=== PATIENT | male | born 1960 | race Caucasian/White ===

== ENCOUNTER 2018-05-23 15:26 | Inpatient (IN) | payer OTHER ==
--- NOTE | 2018-05-23 16:07 | PDOC ---
History of Present Illness - General Chief Complaint: Revisit,Radiology Variance Stated Complaint: CHEST PAIN/ COUGHING BLOOD Time Seen by Provider: 05/23/18 16:07 Past History - Past Medical History Allergies/Adverse Reactions: Allergies Allergy/AdvReac Type Severity Reaction Status Date / Time No Known Allergies Allergy Verified 05/23/18 15:33 Home Medications: Ambulatory Orders Folic Acid - 1 mg PO DAILY 05/23/18 Methotrexate Sodium [Methotrexate] 2.5 mg PO WEEKLY 05/23/18 - Suicide/Smoking/Psychosocial Hx Smoking History: Current every day smoker Information on smoking cessation initiated: No *Physical Exam - Vital Signs Last Vital Signs Temp Pulse Resp BP Pulse Ox 97.7 F 72 16 141/76 98 05/23/18 15:40 05/23/18 15:40 05/23/18 15:40 05/23/18 15:40 05/23/18 15:40 Moderate Sedation - Procedure Monitoring Vital Signs: Procedure Monitoring Vital Signs Temperature 97.7 F 05/23/18 15:40 Pulse Rate 72 05/23/18 15:40 Respiratory Rate 16 05/23/18 15:40 Blood Pressure 141/76 05/23/18 15:40 O2 Sat by Pulse Oximetry (%) 98 05/23/18 15:40 *DC/Admit/Observation/Transfer - Referrals Referrals: Vin Gray MD [Primary Care Provider] - - Patient Instructions - Post Discharge Activity
--- NOTE | 2018-05-23 16:12 | PDOC ---
History of Present Illness - General Chief Complaint: Revisit,Radiology Variance Stated Complaint: CHEST PAIN/ COUGHING BLOOD Time Seen by Provider: 05/23/18 16:07 History Source: Patient, Spouse ( present at bedside), [employer], Primary Care Provider Exam Limitations: Language Barrier - History of Present Illness Initial Comments: HPI: 57 y/o male presenting to [facility] ER from Dr. Vin Gray office with concern for right hilar mass with possible post obstructive right upper lobe pneumonia noted on PET scan performed yesterday. Pt reports right sided pleuritic chest pain and morning hemoptysis for the past two weeks with night sweats, weight loss, facial flushing, and muscle weakness for the past month. Denies diarrhea, vomiting, or syncope. Received 9 days of PO Levaquin 500mg. Outpatient PET scan uploaded into PACS. On outpatient labs dated 17 Apr 2018: ESR 79 CRP 7.7 Pt is Macedonian speaking only. [employer] telephone maker up folding utilized. PCP: Dr. 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 RA factor IgA elevated, normal IgM and IgG Family Hx: - Brother diagnosed with prostate cancer Past History - Past Medical History Allergies/Adverse Reactions: Allergies Allergy/AdvReac Type Severity Reaction Status Date / Time No Known Allergies Allergy Verified 05/23/18 15:33 Home Medications: Ambulatory Orders Folic Acid - 1 mg PO DAILY 05/23/18 Methotrexate Sodium [Methotrexate] 2.5 mg PO WEEKLY 05/23/18 - Suicide/Smoking/Psychosocial Hx Smoking History: Current every day smoker Information on smoking cessation initiated: No Review of Systems - Review of Systems Able to Perform ROS?: Yes Comments:: In addition to that documented in the HPI above, the additional ROS was obtained : Constitutional: Endorses night sweats and fevers ENMT: Denies sore throat or difficulty swallowing CV: Per HPI Resp: Per HPI GI: Denies vomiting, diarrhea, melena, or hematochezia : Denies dysuria, hematuria, or urinary frequency *Physical Exam - Vital Signs Last Vital Signs Temp Pulse Resp BP Pulse Ox 97.7 F 72 16 141/76 98 05/23/18 15:40 05/23/18 15:40 05/23/18 15:40 05/23/18 15:40 05/23/18 15:40 - Physical Exam Comments: Constitutional: Well-developed, well-nourished adult male in no acute distress or obvious discomfort. Found semi-fowlers in hospital bed. Alert and oriented x4. Answered all questions appropriately and completely. Speech was non-labored , non-pressured. Head: Normocephalic. No obvious external signs of trauma. Eyes: Sclerae white. Ears: Hearing grossly intact. Nose: No nasal discharge. Neck: Supple, trachea is midline. Cardiovascular / Chest: Regular rate and regular rhythm. No murmur, rubs, clicks, or gallops. Peripheral pulses: radial pulses full. Respiratory: Breathing unlabored. Equal chest rise and fall. Clear to auscultation bilaterally. No stridor, no wheezing, no rhonchi. Gastrointestinal: abdomen is soft, non-tender, non-distended. Neuro: Alert and oriented. Moving all four extremities spontaneously. Skin: Warm, dry, and intact. Psych: Affect: appropriate. Mood: normal. Moderate Sedation - Procedure Monitoring Vital Signs: Procedure Monitoring Vital Signs Temperature 97.7 F 05/23/18 15:40 Pulse Rate 72 05/23/18 15:40 Respiratory Rate 16 05/23/18 15:40 Blood Pressure 141/76 05/23/18 15:40 O2 Sat by Pulse Oximetry (%) 98 05/23/18 15:40 ED Treatment Course - LABORATORY CBC & Chemistry Diagram: 05/23/18 16:56 05/23/18 16:56 Medical Decision Making - Medical Decision Making *Reviewed vital signs, nursing notes, and prior visit documentation (if available). 57 y/o male presenting at request of PCP for admission and further evaluation of right lung mass with possible postobstructive pneumonia. Afebrile. Vitals unremarkable for hypotension or tachycardia. Will obtain chest CT and basic lab work with ESR and CRP to trend from outpatient labs. ESR and CRP remain elevated at level previous documented. CBC unremarkable for anemia or leukocytosis. CMP unremarkable for significant electrolyte derangement. LFTs not elevated. BUN mildly elevated but Cr at baseline. eGFR >60. In person consultation with Dr. Pickens. Verbally appraised of the pts HPI, ED course, and current plan of management. Requested ceftriaxone for possible pneumonia and non-emergent ID consultation after evaluating the CT scan. Will evaluate the pt. 18:[address] Rg through answering service. Awaiting call back. Telephone consultation for admission with Dr. Rg. Verbally appraised of the pts HPI, ED course, and current plan of management. Requested Dr. Lake ID consult. No further orders requested. Will accept pt to med/surg on inpatient status. Formal CT scan radiology report pending at time of admission. *DC/Admit/Observation/Transfer Diagnosis at time of Disposition: Abnormal radiologic finding of lung field - Discharge Dispostion Condition at time of disposition: Good Decision to Admit order: Yes - Referrals - Patient Instructions - Post Discharge Activity
[2018-05-23 17:15] LABS: BASO % 0.8 % (0-2.0); EOS % 3.9 % (0-4.5); HEMATOCRIT 39.7 % (35.4-49); HEMOGLOBIN 13.7 GM/dL (11.7-16.9); LYMPH % 19.4 % (8-40); MCH 31.5 pg (25.7-33.7); MCHC 34.6 g/dl (32.0-35.9); MEAN CELL VOLUME 90.9 fl (80-96); MEAN PLT VOLUME 8.6 fl (7.5-11.1); MONO % 6.8 % (3.8-10.2); NEUT % 69.1 % (42.8-82.8); PLATELET COUNT 382 K/MM3 (134-434); RBC 4.37 M/mm3 (4.00-5.60); RDW 13.4 % (11.9-15.9)
[2018-05-23 17:40] LABS: INR 1.14 (0.83-1.09); PROTHROMBIN TIME (PATIENT) 13.5 SEC (9.7-13.0)
--- NOTE | 2018-05-23 17:48 | PDOC ---
Attending Attestation - Resident Resident Name: Donte Torres - ED Attending Attestation I have performed the following: I have examined & evaluated the patient, The case was reviewed & discussed with the resident, I agree w/resident's findings & plan, Exceptions are as noted - HPI HPI: 05/23/18 17:46 57 M with no PMH presenting to ED after being found to have new R lung mass. Pt reports having R sided chest pain and hemoptysis x 2 weeks. He endorses pleuritic pain. Also complains of night sweats and weight loss, as well as generalized fatigue. Denies any fevers. Denies recent travel or prior incarceration. Pt was treated with outpt course of levaquin by Dr. Gray. Had outpt PET scan that showed R hilar mass. - Physicial Exam PE: 05/23/18 17:47 "GENERAL: Awake, alert, and fully oriented, in no acute distress. HEAD: No signs of trauma EYES: PERRLA, EOMI, sclera anicteric, conjunctiva clear ENT: Auricles normal inspection, hearing grossly normal, nares patent, oropharynx clear without exudates. Moist mucosa NECK: Nontender, no stepoffs, Normal ROM, supple, no lymphadenopathy, JVD, or masses LUNGS: Breath sounds equal, clear to auscultation bilaterally. No wheezes, and no crackles HEART: Regular rate and rhythm, normal S1 and S2, no murmurs, rubs or gallops ABDOMEN: Soft, nontender, normoactive bowel sounds. No guarding, no rebound. No masses EXTREMITIES: Normal range of motion, no edema. No clubbing or cyanosis. No cords, erythema, or tenderness NEUROLOGICAL: Cranial nerves II through XII intact. 5/5 strength and sensation in all extremities, Normal speech, normal gait, normal cerebellar function SKIN: Warm, Dry, normal turgor, no rashes or lesions noted. - Medical Decision Making 05/23/18 17:47 57 M with R chest pain, hemoptysis, found to have new R hilar lung mass. - Labs - CT chest - Admit
[2018-05-23] MEDS ORDERED: CEFTRIAXONE 1,000 MG in DEXTROSE 5%-WATER - 50 ML IVPB ONE (18:18)
[2018-05-23] MEDS ORDERED: CEFTRIAXONE 1 GM/50 ML BAG ONE (18:33)
[2018-05-23 18:49] LABS: MAGNESIUM 2.2 mg/dL (1.8-2.4); PHOSPHOROUS 3.8 mg/dL (2.5-4.9)
[2018-05-23 19:51] LABS: ALBUMIN 3.5 g/dl (3.4-5.0); ALK PHOS 83 U/L (45-117); ANION GAP 8 MMOL/L (8-16); BILIRUBIN,TOTAL 0.1 mg/dL (0.2-1); BLOOD UREA NITROGEN 22 mg/dL (7-18); CALCIUM 8.8 mg/dL (8.5-10.1); CHLORIDE 106 mmol/L (98-107); CO2 23 mmol/L (21-32); CREATININE 0.8 mg/dL (0.55-1.3); GLUCOSE,RANDOM 94 mg/dL (74-106); POTASSIUM 4.3 mmol/L (3.5-5.1); SGOT/AST 16 U/L (15-37); SGPT/ALT 27 U/L (13-61); SODIUM 137 mmol/L (136-145); TOT PROT 7.3 g/dl (6.4-8.2)
[2018-05-24] MEDS ORDERED: ALBUTEROL SO4 2.5/IPRATROPIUM 0.5 INH SOL 3 ML VIAL.NEB. NEB PRN (02:37)
[2018-05-24 07:26] LABS: EOS % 4.1 % (0-4.5); HEMOGLOBIN 13.8 GM/dL (11.7-16.9); LYMPH % 22.9 % (8-40); MCH 31.1 pg (25.7-33.7); MCHC 34.5 g/dl (32.0-35.9); MEAN CELL VOLUME 90.1 fl (80-96); MEAN PLT VOLUME 8.8 fl (7.5-11.1); PLATELET COUNT 340 K/MM3 (134-434); RBC 4.43 M/mm3 (4.00-5.60); RDW 13.1 % (11.9-15.9)
[2018-05-24 07:56] LABS: ALBUMIN 2.9 g/dl (3.4-5.0); ALK PHOS 73 U/L (45-117); ANION GAP 6 MMOL/L (8-16); BILIRUBIN,TOTAL 0.4 mg/dL (0.2-1); BLOOD UREA NITROGEN 18 mg/dL (7-18); CALCIUM 8.4 mg/dL (8.5-10.1); CHLORIDE 105 mmol/L (98-107); CO2 28 mmol/L (21-32); CREATININE 0.5 mg/dL (0.55-1.3); GLUCOSE,RANDOM 94 mg/dL (74-106); POTASSIUM 4.3 mmol/L (3.5-5.1); SGOT/AST 19 U/L (15-37); SGPT/ALT 30 U/L (13-61); SODIUM 139 mmol/L (136-145); TOT PROT 6.5 g/dl (6.4-8.2)
[2018-05-24] MEDS ORDERED: DEXTROSE 5%-WATER - 50 ML IVPB ONE (09:49)
[2018-05-24] MEDS ORDERED: cefTRIAXone SODIUM 1 GM VIAL ONE (09:49)
[2018-05-24] MEDS: CEFTRIAXONE 1 GM in DEXTROSE 5%-WATER - 50 ML IVPB SCH (10:36)
[2018-05-24] MEDS: FOLIC ACID 1 MG TABLET (FP) PO SCH (10:36)
[2018-05-24] MEDS: HEPARIN NA (PORCINE) 5,000 UNITS/ML 1ML VIAL SQ SCH ×2 (10:36→21:31)
--- NOTE | 2018-05-24 11:40 | CON.ID ---
Consult Consult Specialty:: infectious diseases Referred by:: Reason for Consultation:: pna/hemoptysis - History of Present Illness Chief Complaint: sob History of Present Illness: 57 y/o male admitted because of sob and was worked up outside and found to have concern for right hilar mass with possible post obstructive right upper lobe pneumonia noted on PET scan performed yesterday. Pt reports right sided pleuritic chest pain and morning hemoptysis for the past two weeks with night sweats, weight loss, facial flushing, and muscle weakness for the past month. Denies diarrhea, vomiting, or syncope. Received 9 days of PO Levaquin 500mg. patients in the room who has given the history patient was a heavy smoker at one time - History Source History Provided By: Family Member Limitations to Obtaining History: Language Barrier - Alcohol/Substance Use Hx Alcohol Use: No - Smoking History Smoking history: Current every day smoker Have you smoked in the past 12 months: Yes Aproximately how many cigarettes per day: 20 Home Medications - Allergies Allergies/Adverse Reactions: Allergies Allergy/AdvReac Type Severity Reaction Status Date / Time No Known Allergies Allergy Verified 05/23/18 15:33 - Home Medications Home Medications: Ambulatory Orders Methotrexate Sodium [Methotrexate] 12.5 mg PO WEEKLY 05/23/18 Naproxen [Naprosyn -] 500 mg PO PRN 05/23/18 RX: Folic Acid - 1 mg PO DAILY 05/23/18 levoFLOXacin [Levaquin -] 500 mg PO DAILY MDD 2 more doses 05/23/18 Review of Systems - Review of Systems Constitutional: reports: Weakness Eyes: reports: No Symptoms HENT: reports: No Symptoms Neck: reports: No Symptoms Cardiovascular: reports: No Symptoms Respiratory: reports: Cough, SOB, SOB on Exertion Gastrointestinal: reports: No Symptoms Genitourinary: reports: No Symptoms Musculoskeletal: reports: No Symptoms Integumentary: reports: No Symptoms Neurological: reports: No Symptoms Endocrine: reports: No Symptoms Hematology/Lymphatic: reports: No Symptoms Psychiatric: reports: No Symptoms Physical Exam Vital Signs: Vital Signs Temperature 98.6 F 05/24/18 09:00 Pulse Rate 75 05/24/18 09:00 Respiratory Rate 18 05/24/18 09:00 Blood Pressure 134/77 05/24/18 09:00 O2 Sat by Pulse Oximetry (%) 98 05/23/18 22:00 Constitutional: Yes: No Distress, Calm, Thin Eyes: Yes: Conjunctiva Clear HENT: Yes: Atraumatic Neck: Yes: Supple, Trachea Midline Cardiovascular: Yes: Regular Rate and Rhythm Respiratory: Yes: Poor Air Entry (at the bases,poor insp effort) Gastrointestinal: Yes: Normal Bowel Sounds, Soft Extremities: Yes: WNL Integumentary: Yes: WNL Neurological: Yes: Alert, Oriented Psychiatric: Yes: Alert, Oriented Labs: CBC, BMP 05/24/18 06:00 05/24/18 06:00 Imaging - Results Cat Scan: Report Reviewed, Image Reviewed Assessment/Plan Problem List - Problems (1) Abnormal radiologic finding of lung field Code(s): R91.8 - OTHER NONSPECIFIC ABNORMAL FINDING OF LUNG FIELD (2) Pneumonia Code(s): J18.9 - PNEUMONIA, UNSPECIFIED ORGANISM patient probably with lung ca and also post obst pna continue current mgmt will continue abx for now work up rest as per the team
--- NOTE | 2018-05-24 11:41 | EKG ---
Test Reason : Blood Pressure : / mmHG Vent. Rate : 069 BPM Atrial Rate : 069 BPM P-R Int : 156 ms QRS Dur : 110 ms QT Int : 378 ms P-R-T Axes : 077 028 060 degrees QTc Int : 405 ms NORMAL SINUS RHYTHM POSSIBLE LEFT ATRIAL ENLARGEMENT INCOMPLETE RIGHT BUNDLE BRANCH BLOCK NO PREVIOUS ECGS AVAILABLE Confirmed by BECCA HERNÁNDEZ MD ([id number]) on 05/24/2018 11:41:22 AM Referred By: Confirmed By:BECCA HERNÁNDEZ MD
--- NOTE | 2018-05-24 13:04 | CONSULT ---
Consultation: REQUESTING PROVIDER: Dr. Rg CONSULT REQUEST: We have been asked to medically evaluate this patient for lung mass. HISTORY OF PRESENT ILLNESS: This is a 57 year old Croatian with a history of osteoarthritis (may also have RA? on methotrexate [id number], patients states for arthritis) , with complaints of hemoptysis most often in the morning (x2 weeks), 20lb weight loss in the past year, and a recent found lung mass on outpatient chest CT. He is a 1pp 40 yr smoker, recently quit. In the ER chest CT revealing right hilar mass with partial obstruction of the right bronchus; with enlarged paratracheal mediastinal lymph nodes. PMH: osterarthritis; RA? PSH: had bad accident years ago ; surgery on knees, legs, arms Social REVIEW OF SYSTEMS: CONSTITUTIONAL: Absent: fever, chills, diaphoresis, generalized weakness, malaise, loss of appetite, weight change HEENT: Absent: rhinorrhea, nasal congestion, throat pain, throat swelling, difficulty swallowing, mouth swelling, ear pain, eye pain, visual changes CARDIOVASCULAR: Positive: intermittent chest pain, Absent: syncope, palpitations, irregular heart rate, lightheadedness, peripheral edema RESPIRATORY: Positive: cough, shortness of breath, dyspnea with exertion, hemoptysis Absent: , orthopnea, wheezing, stridor, GASTROINTESTINAL: Absent: abdominal pain, abdominal distension, nausea, vomiting, diarrhea, constipation, melena, hematochezia GENITOURINARY: Absent: dysuria, frequency, urgency, hesitancy, hematuria, flank pain, genital pain MUSCULOSKELETAL: Absent: myalgia, arthralgia, joint swelling, back pain, neck pain SKIN: Absent: rash, itching, pallor HEMATOLOGIC/IMMUNOLOGIC: Absent: easy bleeding, easy bruising, lymphadenopathy, frequent infections ENDOCRINE: Absent: unexplained weight gain, unexplained weight loss, heat intolerance, cold intolerance NEUROLOGIC: Absent: headache, focal weakness or paresthesias, dizziness, unsteady gait, seizure, mental status changes, bladder or bowel incontinence PSYCHIATRIC: Absent: anxiety, depression, suicidal or homicidal ideation, hallucinations. PHYSICAL EXAMINATION Vital Signs - 24 hr 05/23/18 05/23/18 05/23/18 15:40 19:31 21:00 Temperature 97.7 F 98.2 F Pulse Rate 72 Pulse Rate [ 72 Right Radial] Respiratory 16 19 Rate Blood Pressure 141/76 Blood Pressure 143/80 [Left Arm] O2 Sat by Pulse 98 100 98 Oximetry (%) 05/23/18 05/23/18 05/24/18 21:13 22:00 06:46 Temperature 98.1 F 98.1 F 97.9 F Pulse Rate 61 61 61 Pulse Rate [ Right Radial] Respiratory 18 18 18 Rate Blood Pressure 117/66 117/66 119/68 Blood Pressure [Left Arm] O2 Sat by Pulse 98 Oximetry (%) 05/24/18 09:00 Temperature 98.6 F Pulse Rate 75 Pulse Rate [ Right Radial] Respiratory 18 Rate Blood Pressure 134/77 Blood Pressure [Left Arm] O2 Sat by Pulse 96 Oximetry (%) GENERAL: Awake, alert, and fully oriented, in no acute distress. HEAD: Normal with no signs of trauma. EYES: Pupils equal, round and reactive to light, extraocular movements intact, sclera anicteric, conjunctiva clear. No lid lag. EARS, NOSE, THROAT: Ears normal, nares patent, oropharynx clear without exudates. Moist mucous membranes. NECK: Normal range of motion, supple without lymphadenopathy, JVD, or masses. Breast/axilla; no lumps, masses ; nipple discharge LUNGS: decreased breath sounds RUL; scattered wheeze HEART: Regular rate and rhythm, normal S1 and S2 without murmur, rub or gallop. ABDOMEN: Soft, nontender, not distended, normoactive bowel sounds, no guarding, no rebound, no masses. No hepatomegaly or splenomegaly. MUSCULOSKELETAL: Normal range of motion at all joints. No bony deformities or tenderness. No CVA tenderness. UPPER EXTREMITIES: 2+ pulses, warm, well-perfused. No cyanosis. No clubbing. Cap refill <2 seconds. No peripheral edema. LOWER EXTREMITIES: 2+ pulses, warm, well-perfused. No calf tenderness. No peripheral edema. left foot; larger than right; bony prominence; NEUROLOGICAL: Cranial nerves II-XII intact. Normal speech. PSYCHIATRIC: Cooperative. Good eye contact. Appropriate mood and affect. SKIN: Warm, dry, normal turgor, no rashes or lesions noted. Laboratory Results - last 24 hr 05/23/18 05/23/18 05/23/18 16:56 16:56 16:56 WBC 9.0 RBC 4.37 Hgb 13.7 Hct 39.7 MCV 90.9 MCH 31.5 MCHC 34.6 RDW 13.4 Plt Count 382 MPV 8.6 Absolute Neuts (auto) 6.2 Neutrophils % 69.1 Lymphocytes % 19.4 Monocytes % 6.8 Eosinophils % 3.9 Basophils % 0.8 Nucleated RBC % 0 ESR PT with INR INR Sodium 137 Potassium 4.3 Chloride 106 Carbon Dioxide 23 Anion Gap 8 BUN 22 H Creatinine 0.8 Creat Clearance w eGFR > 60 Random Glucose 94 Calcium 8.8 Phosphorus Magnesium Total Bilirubin 0.1 L AST 16 ALT 27 Alkaline Phosphatase 83 C-Reactive Protein 1.5 H Total Protein 7.3 Albumin 3.5 Blood Type O POSITIVE Antibody Screen Negative 05/23/18 05/23/18 05/23/18 16:56 16:56 16:56 WBC RBC Hgb Hct MCV MCH MCHC RDW Plt Count MPV Absolute Neuts (auto) Neutrophils % Lymphocytes % Monocytes % Eosinophils % Basophils % Nucleated RBC % ESR 44 H PT with INR 13.50 H INR 1.14 H Sodium Potassium Chloride Carbon Dioxide Anion Gap BUN Creatinine Creat Clearance w eGFR Random Glucose Calcium Phosphorus 3.8 Magnesium 2.2 Total Bilirubin AST ALT Alkaline Phosphatase C-Reactive Protein Total Protein Albumin Blood Type Antibody Screen 05/23/18 05/24/18 05/24/18 21:20 06:00 06:00 WBC 7.0 RBC 4.43 Hgb 13.8 Hct 40.0 MCV 90.1 MCH 31.1 MCHC 34.5 RDW 13.1 Plt Count 340 MPV 8.8 Absolute Neuts (auto) 4.5 Neutrophils % 64.0 Lymphocytes % 22.9 Monocytes % 8.0 Eosinophils % 4.1 Basophils % 1.0 Nucleated RBC % 0 ESR PT with INR INR Sodium 139 Potassium 4.3 Chloride 105 Carbon Dioxide 28 Anion Gap 6 L BUN 18 Creatinine 0.5 L Creat Clearance w eGFR > 60 Random Glucose 94 Calcium 8.4 L Phosphorus Magnesium Total Bilirubin 0.4 AST 19 ALT 30 Alkaline Phosphatase 73 C-Reactive Protein Total Protein 6.5 Albumin 2.9 L Blood Type O POSITIVE Antibody Screen Active Medications Generic Name Dose Route Start Last Admin Trade Name Freq PRN Reason Stop Dose Admin Albuterol/Ipratropium 1 amp 05/24/18 02:37 Duoneb - NEB Q6H PRN SHORTNESS OF BREATH Folic Acid 1 mg 05/24/18 10:00 05/24/18 10:36 Folic Acid - PO 1 mg DAILY NESHA Administration Heparin Sodium (Porcine) 5,000 unit 05/24/18 10:00 05/24/18 10:36 Heparin - SQ 5,000 unit BID NESHA Administration Ceftriaxone Sodium 1 gm/ 50 mls @ 100 mls/hr 05/24/18 10:00 05/24/18 10:36 Dextrose IVPB 100 mls/hr DAILY NESHA Administration Protocol Methotrexate 2.5 mg 05/24/18 02:15 Mexate - PO We [facility] ASSESSMENT/PLAN: This is a 57 year old male with history tobacco use; recent outpatient CT chest showing lung mass; presenting with hemoptysis x2 weeks, found to have post obstructive pna. Lung mass post obstructive pna -chest ct showing right hilar mass with enlarged pretracheal mediastinal nodes -staging; had PET as outpatient; get results; if <1month will only need brain MRI to complete stating (chest CT here extended to adrenals) -need tissue sampling for diagnosis ; bronchoscopy -PT/PTT -pulm consult appreciated Will follow Dispo: We will continue to follow the patient. Thank you for this consultative opportunity. Visit type - Emergency Visit Emergency Visit: Yes ED Registration Date: 05/23/18 Care time: The patient presented to the Emergency Department on the above date and was hospitalized for further evaluation of their emergent condition. - New Patient This patient is new to me today: Yes Date on this admission: 05/24/18 - Critical Care Critical Care patient: No
[2018-05-24 13:18] VITALS: BMI 25.1
--- NOTE | 2018-05-24 14:41 | CON.PULM ---
Consult Consult Specialty:: PULMONARY Referred by:: REYNALDO Reason for Consultation:: LUNG MASS - History of Present Illness Chief Complaint: HEMOPTYSIS/WEIGHT LOSS/CHEST PAIN History of Present Illness: 57 M with no PMH presenting to ED after being found to have new R lung mass. Pt reports having R sided chest pain and hemoptysis x 2 weeks. He endorses pleuritic pain. Also complains of night sweats and weight loss, as well as generalized fatigue. Denies any fevers. Denies recent travel or prior incarceration. Pt was treated with outpt course of levaquin by Dr. Gray. Had outpt PET scan that showed R hilar mass. 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 Cardio/Vascular: No: AFIB Pulmonary: No: Asthma, COPD Gastrointestinal: No: Ascites Hepatobiliary: No: Cirrhosis Renal/: No: Renal Failure Heme/Onc: No: Anemia - Alcohol/Substance Use Hx Alcohol Use: No - Smoking History Smoking history: Current every day smoker Have you smoked in the past 12 months: Yes Aproximately how many cigarettes per day: 20 - Social History ADL: Independent Place of : Other Home Medications - Allergies Allergies/Adverse Reactions: Allergies Allergy/AdvReac Type Severity Reaction Status Date / Time No Known Allergies Allergy Verified 05/23/18 15:33 - Home Medications Home Medications: Ambulatory Orders Folic Acid - 1 mg PO DAILY 05/23/18 Methotrexate Sodium [Methotrexate] 2.5 mg PO WEEKLY 05/23/18 Naproxen [Naprosyn -] 500 mg PO PRN 05/23/18 levoFLOXacin [Levaquin -] 500 mg PO DAILY MDD 2 more doses 05/23/18 Family Disease History - Family Disease History Family History: Unable to Obtain Review of Systems - Review of Systems Constitutional: reports: Loss of Appetite, Unintentional Wgt. Loss Eyes: denies: Blurred Vision HENT: denies: Difficult Swallowing Neck: denies: Decreased ROM Cardiovascular: reports: Chest Pain Respiratory: reports: Cough, Hemoptysis, SOB Gastrointestinal: denies: Abdominal Pain Genitourinary: denies: Burning Physical Exam Vital Sings: Vital Signs Temperature 98.6 F 05/24/18 09:00 Pulse Rate 75 05/24/18 09:00 Respiratory Rate 18 05/24/18 09:00 Blood Pressure 134/77 05/24/18 09:00 O2 Sat by Pulse Oximetry (%) 96 05/24/18 09:00 Constitutional: Yes: Calm Eyes: Yes: EOM Intact HENT: Yes: Normocephalic Neck: Yes: Trachea Midline Cardiovascular: Yes: Regular Rate and Rhythm Respiratory: Yes: CTA Bilaterally Gastrointestinal: Yes: Normal Bowel Sounds Breast(s): Yes: WNL Musculoskeletal: Yes: WNL Extremities: Yes: WNL Peripheral Pulses WNL: Yes Integumentary: Yes: WNL Neurological: Yes: WNL, Alert Psychiatric: Yes: WNL Labs: CBC, BMP 05/24/18 06:00 05/24/18 06:00 RSET REVIEWED Imaging - Results Chest X-ray: Report Reviewed, Image Reviewed Cat Scan: Report Reviewed, Image Reviewed Problem List - Problems (1) Abnormal radiologic finding of lung field Code(s): R91.8 - OTHER NONSPECIFIC ABNORMAL FINDING OF LUNG FIELD (2) Pneumonia Code(s): J18.9 - PNEUMONIA, UNSPECIFIED ORGANISM Assessment/Plan ?POST OBSTRUCTIVE PROCESS WARRANTS ANTIBIOTICS RIGHT SUPRA-HILAR MASS WITH ENLARGED PRETRACHEAL LYMPH NODES PETS SCAN REPORT REVIEWED +UPTAKE PRECARINAL NODE/RIGHT SUPRAHILAR MASS/UPTAKE BILATERAL ADRENALS WILL ASK T-SURG TO EVAL FOR C-MED FOR DIAGNOSIS AND STAGING T-SURG WILL DO BRONCHO PRIOR TO PROCEDURE IF NOT POSSIBLE THEN WILL ARRANGE FOR BRONCHO VIA PULMONARY TEAM Javon RENEE MD
--- NOTE | 2018-05-24 15:57 | CONSULT ---
Consult Consult Specialty:: Thoracic Surgery Referred by:: Dr. Stanley Reason for Consultation:: hilar mass right - History of Present Illness Chief Complaint: hemoptysis x 2 weeks hilar mass History of Present Illness: 57M former smoker with >30 packyears p/w hemoptysis, weakness, fever x 2 weeks, weight loss x 20 lbs over 1 year. H/O RA treated with methotrexate. 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 Cardio/Vascular: No: AFIB Pulmonary: No: Asthma, COPD Gastrointestinal: No: Ascites Hepatobiliary: No: Cirrhosis Renal/: No: Renal Failure Rheumatology: Yes: Rheumatoid Arthritis - Alcohol/Substance Use Hx Alcohol Use: No - Smoking History Smoking history: Current every day smoker Have you smoked in the past 12 months: Yes Aproximately how many cigarettes per day: 20 - Social History ADL: Independent Home Medications - Allergies Allergies/Adverse Reactions: Allergies Allergy/AdvReac Type Severity Reaction Status Date / Time No Known Allergies Allergy Verified 05/23/18 15:33 - Home Medications Home Medications: Ambulatory Orders Folic Acid - 1 mg PO DAILY 05/23/18 Methotrexate Sodium [Methotrexate] 12.5 mg PO WEEKLY 05/23/18 Naproxen [Naprosyn -] 500 mg PO PRN 05/23/18 levoFLOXacin [Levaquin -] 500 mg PO DAILY MDD 2 more doses 05/23/18 Family Disease History - Family Disease History Family History: Unremarkable Review of Systems - Review of Systems Constitutional: reports: Fever, Night Sweats, Unintentional Wgt. Loss Neck: reports: No Symptoms Cardiovascular: reports: No Symptoms Respiratory: reports: SOB on Exertion Gastrointestinal: reports: No Symptoms Physical Exam Vital Signs: Vital Signs Temperature 98.3 F 05/24/18 14:45 Pulse Rate 63 05/24/18 14:45 Respiratory Rate 20 05/24/18 14:45 Blood Pressure 121/59 L 05/24/18 14:45 O2 Sat by Pulse Oximetry (%) 96 05/24/18 09:00 Constitutional: Yes: Well Nourished Eyes: Yes: WNL Neck: Yes: Supple Respiratory: Yes: Diminished (right apex) Labs: CBC, BMP 05/24/18 06:00 05/24/18 06:00 Imaging - Results Cat Scan: Image Reviewed Other: Report Reviewed Problem List - Problems (1) Abnormal radiologic finding of lung field Code(s): R91.8 - OTHER NONSPECIFIC ABNORMAL FINDING OF LUNG FIELD Assessment/Plan 57M with right hilar mass hemoptysis (minimal not severe) weight loss but h/o RA and smoking. PET shows avid mass, precarinal node (enlarged), avid adrenal masses. -Needs biopsy, possible staging but given immunosuppression atypical infections are in differential; -Recommend bronchoscopy as first procedure with biopsies (this should get tissue for dx, if small cell no further biopsy, if not cancer will give cultures ) and cultures if frozen shows no tumor; -Assess adrenal lesions with CT adrenal protocol or MR if cancer that is not small cell cell. If NSCLC would stage with EBUS/Mediastinoscopy if these appear to be adrenal adenomas rather than lesions or bx them if they are mets (stage 4 ) to direct further therapy.
--- NOTE | 2018-05-24 18:42 | HP ---
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 Cardiovascular: No: AFIB Pulmonary: No: Asthma, COPD Gastrointestinal: No: Ascites Hepatobiliary: No: Cirrhosis Renal/: No: Renal Failure Heme/Onc: No: Anemia Rheumatology: Yes: Rheumatoid Arthritis - Smoking History Smoking history: Current every day smoker Have you smoked in the past 12 months: Yes Aproximately how many cigarettes per day: 20 - Alcohol/Substance Use Hx Alcohol Use: No - Social History ADL: Independent Home Medications - Allergies Allergies/Adverse Reactions: Allergies Allergy/AdvReac Type Severity Reaction Status Date / Time No Known Allergies Allergy Verified 05/23/18 15:33 - Home Medications Home Medications: Ambulatory Orders Folic Acid - 1 mg PO DAILY 05/23/18 Methotrexate Sodium [Methotrexate] 12.5 mg PO WEEKLY 05/23/18 Naproxen [Naprosyn -] 500 mg PO PRN 05/23/18 levoFLOXacin [Levaquin -] 500 mg PO DAILY MDD 2 more doses 05/23/18 Physical Examination Vital Signs: Vital Signs Temperature 98.2 F 05/24/18 18:00 Pulse Rate 65 05/24/18 18:00 Respiratory Rate 16 05/24/18 18:00 Blood Pressure 101/61 05/24/18 18:00 O2 Sat by Pulse Oximetry (%) 96 05/24/18 09:00 Labs: CBC, BMP 05/24/18 06:00 05/24/18 06:00
--- NOTE | 2018-05-24 20:35 | CONSULT ---
Consult - text type - Consultation Consultation Note: 57 M with no PMH presenting with R sided chest pain and hemoptysis x 2 weeks. He endorses pleuritic pain. Also complains of night sweats and 20 pound weight loss, as well as generalized fatigue. PET shows FDG avid mass, precarinal node ( enlarged), avid adrenal masses. Had outpt PET scan that showed R hilar mass and adrenal upake. - Smoking History Smoking history: Current every day smoker - Allergies Allergies/Adverse Reactions: Allergies Allergy/AdvReac Type Severity Reaction Status Date / Time No Known Allergies Allergy Verified 05/23/18 15:33 - Home Medications Home Medications: Ambulatory Orders Folic Acid - 1 mg PO DAILY 05/23/18 Methotrexate Sodium [Methotrexate] 2.5 mg PO WEEKLY 05/23/18 Naproxen [Naprosyn -] 500 mg PO PRN 05/23/18 levoFLOXacin [Levaquin -] 500 mg PO DAILY MDD 2 more doses 05/23/18 Family Disease History - Family Disease History Family History: Unable to Obtain Vital Sings: Last Vital Signs Temp Pulse Resp BP Pulse Ox 98.2 F 70 20 105/60 98 05/24/18 18:00 05/24/18 22:00 05/24/18 22:00 05/24/18 22:00 05/24/18 21:00 Cor: RSR, No murmurs, No gallops Lungs: Clear to P&A Abd: Soft, Normal bowel sounds, No organomegaly Ext:No significant edema Labs/meds reviewed Assessment/Plan 57 y/o patient > 30 pack year smoker, RA on MTX comes in with 20lb wt. loss, fatigue, right sided chest pain, hemoptysis CT chest --rt. suprahilar mass/copressionof RUL bronchus/? postobstructive pneumonia/paratracheal adenopathy/ ? rt. adrenal adenoma PET SCAN REPORT REVIEWED +UPTAKE PRECARINAL NODE/RIGHT SUPRAHILAR MASS/UPTAKE BILATERAL ADRENALS CT surgery consult appreciated---f/u CT adrenals T2/N2 /? M1 ? biopsy of adrenal masses ? bronchoscopy /mediastinoscopy Will review CT a/p and make further recommendations
[2018-05-25 08:24] LABS: INR 1.18 (0.83-1.09)
[2018-05-25 08:26] LABS: ACTIVATED PTT 35.2 SECONDS (25.2-36.5)
[2018-05-25] MEDS ORDERED: DEXTROSE 5%-WATER - 50 ML IVPB ONE (09:33)
[2018-05-25] MEDS ORDERED: cefTRIAXone SODIUM 1 GM VIAL ONE (09:33)
[2018-05-25] MEDS: HEPARIN NA (PORCINE) 5,000 UNITS/ML 1ML VIAL SQ SCH ×2 (09:36→21:41)
[2018-05-25] MEDS: FOLIC ACID 1 MG TABLET (FP) PO SCH (09:36)
[2018-05-25] MEDS: CEFTRIAXONE 1 GM in DEXTROSE 5%-WATER - 50 ML IVPB SCH (09:36)
--- NOTE | 2018-05-25 15:18 | PN ---
Progress Note, Physician History of Present Illness: Pt seen and examined, events noted. Labs/imaging results noted. at bedside served as official court interpreter. Pt is afebrile, denies shortness of breath/chest pain. Currently no cough/hemoptysis. Has no other specific complaints. - Current Medication List Current Medications: Active Medications Albuterol/Ipratropium (Duoneb -) 1 amp NEB Q6H PRN PRN Reason: SHORTNESS OF BREATH Folic Acid (Folic Acid -) 1 mg PO DAILY [facility] Last Admin: 05/25/18 09:36 Dose: 1 mg Heparin Sodium (Porcine) (Heparin -) 5,000 unit SQ BID [facility] Last Admin: 05/25/18 09:36 Dose: 5,000 unit Ceftriaxone Sodium 1 gm/ (Dextrose) 50 mls @ 100 mls/hr IVPB DAILY [facility]; Protocol Last Admin: 05/25/18 09:36 Dose: 100 mls/hr Methotrexate (Mexate -) 12.5 mg PO We@1000 [facility] - Objective Vital Signs: Vital Signs Temperature 98.1 F 05/25/18 15:00 Pulse Rate 68 05/25/18 15:00 Respiratory Rate 20 05/25/18 15:00 Blood Pressure 117/61 05/25/18 15:00 O2 Sat by Pulse Oximetry (%) 98 05/24/18 21:00 Constitutional: Yes: No Distress, Calm Eyes: Yes: Conjunctiva Clear Neck: Yes: Supple Cardiovascular: Yes: Regular Rate and Rhythm Respiratory: Yes: CTA Bilaterally Gastrointestinal: Yes: Normal Bowel Sounds, Soft Genitourinary: Yes: WNL Extremities: Yes: WNL Integumentary: Yes: WNL Neurological: Yes: Alert, Oriented Labs: CBC, BMP 05/24/18 06:00 05/24/18 06:00 INR, PTT INR 1.18 (0.83-1.09) H 05/25/18 06:30 Laboratory Tests 05/23/18 05/23/18 05/23/18 16:56 16:56 16:56 WBC 9.0 RBC 4.37 Hgb 13.7 Hct 39.7 MCV 90.9 MCH 31.5 MCHC 34.6 RDW 13.4 Plt Count 382 MPV 8.6 Absolute Neuts (auto) 6.2 Neutrophils % 69.1 Lymphocytes % 19.4 Monocytes % 6.8 Eosinophils % 3.9 Basophils % 0.8 Nucleated RBC % 0 ESR PT with INR INR PTT (Actin FS) Sodium 137 Potassium 4.3 Chloride 106 Carbon Dioxide 23 Anion Gap 8 BUN 22 H Creatinine 0.8 Creat Clearance w eGFR > 60 Random Glucose 94 Calcium 8.8 Phosphorus Magnesium Total Bilirubin 0.1 L AST 16 ALT 27 Alkaline Phosphatase 83 C-Reactive Protein 1.5 H Total Protein 7.3 Albumin 3.5 Blood Type O POSITIVE Antibody Screen Negative 05/23/18 05/23/18 05/23/18 16:56 16:56 16:56 WBC RBC Hgb Hct MCV MCH MCHC RDW Plt Count MPV Absolute Neuts (auto) Neutrophils % Lymphocytes % Monocytes % Eosinophils % Basophils % Nucleated RBC % ESR 44 H PT with INR 13.50 H INR 1.14 H PTT (Actin FS) Sodium Potassium Chloride Carbon Dioxide Anion Gap BUN Creatinine Creat Clearance w eGFR Random Glucose Calcium Phosphorus 3.8 Magnesium 2.2 Total Bilirubin AST ALT Alkaline Phosphatase C-Reactive Protein Total Protein Albumin Blood Type Antibody Screen 05/23/18 05/24/18 05/24/18 21:20 06:00 06:00 WBC 7.0 RBC 4.43 Hgb 13.8 Hct 40.0 MCV 90.1 MCH 31.1 MCHC 34.5 RDW 13.1 Plt Count 340 MPV 8.8 Absolute Neuts (auto) 4.5 Neutrophils % 64.0 Lymphocytes % 22.9 Monocytes % 8.0 Eosinophils % 4.1 Basophils % 1.0 Nucleated RBC % 0 ESR PT with INR INR PTT (Actin FS) Sodium 139 Potassium 4.3 Chloride 105 Carbon Dioxide 28 Anion Gap 6 L BUN 18 Creatinine 0.5 L Creat Clearance w eGFR > 60 Random Glucose 94 Calcium 8.4 L Phosphorus Magnesium Total Bilirubin 0.4 AST 19 ALT 30 Alkaline Phosphatase 73 C-Reactive Protein Total Protein 6.5 Albumin 2.9 L Blood Type O POSITIVE Antibody Screen 05/25/18 06:30 WBC RBC Hgb Hct MCV MCH MCHC RDW Plt Count MPV Absolute Neuts (auto) Neutrophils % Lymphocytes % Monocytes % Eosinophils % Basophils % Nucleated RBC % ESR PT with INR 14.00 H INR 1.18 H PTT (Actin FS) 35.2 Sodium Potassium Chloride Carbon Dioxide Anion Gap BUN Creatinine Creat Clearance w eGFR Random Glucose Calcium Phosphorus Magnesium Total Bilirubin AST ALT Alkaline Phosphatase C-Reactive Protein Total Protein Albumin Blood Type Antibody Screen - ....Imaging Chest X-ray: Report Reviewed Cat Scan: Report Reviewed Problem List - Problems (1) Abnormal radiologic finding of lung field Code(s): R91.8 - OTHER NONSPECIFIC ABNORMAL FINDING OF LUNG FIELD (2) Pneumonia Code(s): J18.9 - PNEUMONIA, UNSPECIFIED ORGANISM Assessment/Plan Rt hilar mass Partial RUL bronchus occlusion Post-obstructive PNA RA - pt is afebrile, currently without distress - no current hemoptysis - continue antibiotics empirically for now - CT surgical consult noted - Hematology f/u continue monitor
--- NOTE | 2018-05-25 15:32 | PN ---
Progress Note (short form) - Note Progress Note: PULMONARY SEE CONSULT FROM 05/23 NO CHANGE IN EXAM HAVE DISCUSSED CASE WITH DR ISBELL PLAN IS FOR BRONCHOSCOPY WILL ARRANGE FOR SUNDAY IF POSSIBLE Javon RENEE MD Problem List - Problems (1) Abnormal radiologic finding of lung field Code(s): R91.8 - OTHER NONSPECIFIC ABNORMAL FINDING OF LUNG FIELD (2) Pneumonia Code(s): J18.9 - PNEUMONIA, UNSPECIFIED ORGANISM
--- NOTE | 2018-05-25 23:04 | PN ---
Progress Note, Physician - Current Medication List Current Medications: Active Medications Albuterol/Ipratropium (Duoneb -) 1 amp NEB Q6H PRN PRN Reason: SHORTNESS OF BREATH Folic Acid (Folic Acid -) 1 mg PO DAILY [facility] Last Admin: 05/25/18 09:36 Dose: 1 mg Heparin Sodium (Porcine) (Heparin -) 5,000 unit SQ BID [facility] Last Admin: 05/25/18 21:41 Dose: 5,000 unit Ceftriaxone Sodium 1 gm/ (Dextrose) 50 mls @ 100 mls/hr IVPB DAILY [facility]; Protocol Last Admin: 05/25/18 09:36 Dose: 100 mls/hr Methotrexate (Mexate -) 12.5 mg PO We@1000 [facility] - Objective Vital Signs: Vital Signs Temperature 98.1 F 05/25/18 15:00 Pulse Rate 64 05/25/18 18:05 Respiratory Rate 20 05/25/18 18:05 Blood Pressure 120/66 05/25/18 18:05 O2 Sat by Pulse Oximetry (%) 98 05/25/18 09:00 Labs: CBC, BMP 05/24/18 06:00 05/24/18 06:00 INR, PTT INR 1.18 (0.83-1.09) H 05/25/18 06:30
[2018-05-26] MEDS ORDERED: cefTRIAXone SODIUM 1 GM VIAL ONE (10:18)
[2018-05-26] MEDS ORDERED: DEXTROSE 5%-WATER - 50 ML IVPB ONE (10:18)
[2018-05-26] MEDS: FOLIC ACID 1 MG TABLET (FP) PO SCH (10:21)
[2018-05-26] MEDS: CEFTRIAXONE 1 GM in DEXTROSE 5%-WATER - 50 ML IVPB SCH (10:21)
[2018-05-26] MEDS: HEPARIN NA (PORCINE) 5,000 UNITS/ML 1ML VIAL SQ SCH ×2 (10:21→21:24)
--- NOTE | 2018-05-26 12:30 | PN ---
Progress Note (short form) - Note Progress Note: PULMONARY VSS/AFEBRILE NO CHANGE IN EXAM HAVE DISCUSSED CASE WITH DR ISBELL PLAN IS FOR BRONCHOSCOPY WILL ARRANGE FOR SUNDAY IF POSSIBLE Javon RENEE MD Problem List - Problems (1) Abnormal radiologic finding of lung field Code(s): R91.8 - OTHER NONSPECIFIC ABNORMAL FINDING OF LUNG FIELD (2) Pneumonia Code(s): J18.9 - PNEUMONIA, UNSPECIFIED ORGANISM
--- NOTE | 2018-05-26 14:26 | PN ---
Progress Note, Physician History of Present Illness: patient stable no issues in the room plan for biopsy tomorrow - Current Medication List Current Medications: Active Medications Albuterol/Ipratropium (Duoneb -) 1 amp NEB Q6H PRN PRN Reason: SHORTNESS OF BREATH Folic Acid (Folic Acid -) 1 mg PO DAILY [facility] Last Admin: 05/26/18 10:21 Dose: 1 mg Heparin Sodium (Porcine) (Heparin -) 5,000 unit SQ BID [facility] Last Admin: 05/26/18 10:21 Dose: 5,000 unit Ceftriaxone Sodium 1 gm/ (Dextrose) 50 mls @ 100 mls/hr IVPB DAILY [facility]; Protocol Last Admin: 05/26/18 10:21 Dose: 100 mls/hr Methotrexate (Mexate -) 12.5 mg PO We@1000 [facility] - Objective Vital Signs: Vital Signs Temperature 98 F 05/26/18 09:05 Pulse Rate 89 05/26/18 09:05 Respiratory Rate 20 05/26/18 09:05 Blood Pressure 116/79 05/26/18 09:05 O2 Sat by Pulse Oximetry (%) 98 05/26/18 09:00 Constitutional: Yes: No Distress, Calm Cardiovascular: Yes: Regular Rate and Rhythm Respiratory: Yes: Regular, CTA Bilaterally Gastrointestinal: Yes: Normal Bowel Sounds, Soft Musculoskeletal: Yes: WNL Extremities: Yes: WNL Neurological: Yes: Alert, Oriented Psychiatric: Yes: Alert, Oriented Labs: CBC, BMP 05/24/18 06:00 05/24/18 06:00 INR, PTT INR 1.18 (0.83-1.09) H 05/25/18 06:30 Assessment/Plan Problem List - Problems (1) Abnormal radiologic finding of lung field Code(s): R91.8 - OTHER NONSPECIFIC ABNORMAL FINDING OF LUNG FIELD (2) Pneumonia Code(s): J18.9 - PNEUMONIA, UNSPECIFIED ORGANISM plan continue current mgmt for biopsy on sunday
--- NOTE | 2018-05-26 23:25 | PN ---
Progress Note, Physician History of Present Illness: No new complaints - Current Medication List Current Medications: Active Medications Albuterol/Ipratropium (Duoneb -) 1 amp NEB Q6H PRN PRN Reason: SHORTNESS OF BREATH Folic Acid (Folic Acid -) 1 mg PO DAILY [facility] Last Admin: 05/26/18 10:21 Dose: 1 mg Heparin Sodium (Porcine) (Heparin -) 5,000 unit SQ BID [facility] Last Admin: 05/26/18 21:24 Dose: 5,000 unit Ceftriaxone Sodium 1 gm/ (Dextrose) 50 mls @ 100 mls/hr IVPB DAILY [facility]; Protocol Last Admin: 05/26/18 10:21 Dose: 100 mls/hr Methotrexate (Mexate -) 12.5 mg PO We@1000 [facility] - Objective Vital Signs: Vital Signs Temperature 98.6 F 05/26/18 18:20 Pulse Rate 74 05/26/18 18:20 Respiratory Rate 20 05/26/18 18:20 Blood Pressure 121/62 05/26/18 18:20 O2 Sat by Pulse Oximetry (%) 98 05/26/18 09:00 Neck: Yes: WNL, Supple Cardiovascular: Yes: WNL, Regular Rate and Rhythm Respiratory: Yes: WNL, Regular, CTA Bilaterally Gastrointestinal: Yes: WNL, Normal Bowel Sounds, Soft Labs: CBC, BMP 05/24/18 06:00 05/24/18 06:00 INR, PTT INR 1.18 (0.83-1.09) H 05/25/18 06:30 Problem List - Problems (1) Lung mass Assessment/Plan: Pt possibly scheduled for bronchoscopy in am No medical contraindication Pt to be npo for procedure Probable malignancy Code(s): R91.8 - OTHER NONSPECIFIC ABNORMAL FINDING OF LUNG FIELD (2) Pneumonia Assessment/Plan: ?Postobstructive pneumoia Cont IV ceftriaxone Code(s): J18.9 - PNEUMONIA, UNSPECIFIED ORGANISM
[2018-05-27 07:56] LABS: BASO % 0.6 % (0-2.0); EOS % 2.1 % (0-4.5); HEMATOCRIT 40.3 % (35.4-49); LYMPH % 15.8 % (8-40); MCH 31.4 pg (25.7-33.7); MCHC 34.7 g/dl (32.0-35.9); MEAN CELL VOLUME 90.4 fl (80-96); MEAN PLT VOLUME 9.4 fl (7.5-11.1); MONO % 10.2 % (3.8-10.2); NEUT % 71.3 % (42.8-82.8); PLATELET COUNT 322 K/MM3 (134-434); RBC 4.46 M/mm3 (4.00-5.60); RDW 13.1 % (11.9-15.9); WHITE BLOOD COUNT 10.3 K/mm3 (4.0-10.0)
[2018-05-27 08:17] LABS: ALBUMIN 3.1 g/dl (3.4-5.0); ALK PHOS 79 U/L (45-117); ANION GAP 8 MMOL/L (8-16); BILIRUBIN,TOTAL 0.5 mg/dL (0.2-1); BLOOD UREA NITROGEN 18 mg/dL (7-18); CALCIUM 8.9 mg/dL (8.5-10.1); CHLORIDE 102 mmol/L (98-107); CO2 28 mmol/L (21-32); CREATININE 0.6 mg/dL (0.55-1.3); GLUCOSE,RANDOM 97 mg/dL (74-106); POTASSIUM 4.6 mmol/L (3.5-5.1); SGOT/AST 9 U/L (15-37); SGPT/ALT 22 U/L (13-61); SODIUM 138 mmol/L (136-145); TOT PROT 6.6 g/dl (6.4-8.2)
[2018-05-27] MEDS ORDERED: DEXTROSE 5%-WATER - 50 ML IVPB ONE (09:25)
[2018-05-27] MEDS ORDERED: cefTRIAXone SODIUM 1 GM VIAL ONE (09:25)
[2018-05-27] MEDS: FOLIC ACID 1 MG TABLET (FP) PO SCH (09:29)
[2018-05-27] MEDS: CEFTRIAXONE 1 GM in DEXTROSE 5%-WATER - 50 ML IVPB SCH (09:29)
--- NOTE | 2018-05-27 11:11 | PN ---
Progress Note, Physician History of Present Illness: patient stable doing well for biopsy today c/o of knee pain - Current Medication List Current Medications: Active Medications Albuterol/Ipratropium (Duoneb -) 1 amp NEB Q6H PRN PRN Reason: SHORTNESS OF BREATH Folic Acid (Folic Acid -) 1 mg PO DAILY [facility] Last Admin: 05/27/18 09:29 Dose: Not Given Ceftriaxone Sodium 1 gm/ (Dextrose) 50 mls @ 100 mls/hr IVPB DAILY [facility]; Protocol Last Admin: 05/27/18 09:29 Dose: 100 mls/hr Methotrexate (Mexate -) 12.5 mg PO We@1000 [facility] - Objective Vital Signs: Vital Signs Temperature 98.1 F 05/27/18 09:00 Pulse Rate 68 05/27/18 09:00 Respiratory Rate 18 05/27/18 09:00 Blood Pressure 108/67 05/27/18 09:00 O2 Sat by Pulse Oximetry (%) 98 05/26/18 21:00 Constitutional: Yes: Calm, Mild Distress Cardiovascular: Yes: Regular Rate and Rhythm Respiratory: Yes: Regular, Poor Air Entry (bases) Gastrointestinal: Yes: Normal Bowel Sounds, Soft Musculoskeletal: Yes: WNL Extremities: Yes: WNL Neurological: Yes: Alert, Oriented Psychiatric: Yes: Alert, Oriented Labs: CBC, BMP 05/27/18 06:00 05/27/18 06:00 INR, PTT INR 1.18 (0.83-1.09) H 05/25/18 06:30 Assessment/Plan Problem List - Problems (1) Abnormal radiologic finding of lung field Code(s): R91.8 - OTHER NONSPECIFIC ABNORMAL FINDING OF LUNG FIELD (2) Pneumonia Code(s): J18.9 - PNEUMONIA, UNSPECIFIED ORGANISM plan continue current mgmt for biopsy today
--- NOTE | 2018-05-27 11:42 | PN ---
Progress Note (short form) - Note Progress Note: PULMONARY Still some hemoptysis. No OR availability today. Vital Signs Period Temp Pulse Resp BP Sys/Mo Pulse Ox Last 24 Hr 98.1 F-98.6 F 68-78 18-20 102-121/62-67 98 Gen: NAD at rest Heart: RRR Lung: decreased breath sounds at the bases Abd: soft, nontender Ext: no edema CBC, BMP 05/27/18 06:00 05/27/18 06:00 Active Medications Albuterol/Ipratropium (Duoneb -) 1 amp NEB Q6H PRN PRN Reason: SHORTNESS OF BREATH Folic Acid (Folic Acid -) 1 mg PO DAILY [facility] Last Admin: 05/27/18 09:29 Dose: Not Given Ceftriaxone Sodium 1 gm/ (Dextrose) 50 mls @ 100 mls/hr IVPB DAILY [facility]; Protocol Last Admin: 05/27/18 09:29 Dose: 100 mls/hr Methotrexate (Mexate -) 12.5 mg PO We@1000 [facility] A/P Hemoptysis Lung Mass Pneumonia Smoker - continue antibiotics - scheduled for bronchoscopy with biopsy 05/28 at 12:30PM - monitor hemoptysis - NPO after midnight
--- NOTE | 2018-05-27 13:26 | PN ---
Progress Note (short form) - Note Progress Note: Scheduled for Bronch w/ bx 05/28/18. Will await results before developing a surgical plan. Dr. Vance aware.
--- NOTE | 2018-05-27 21:25 | PN ---
Progress Note (short form) - Note Progress Note: patient seen and eamined feels well afvss Cor: RSR, No murmurs, No gallops Lungs: Clear to P&A Abd: Soft, Normal bowel sounds, No organomegaly Ext:No significant edema labs/eds reviewed a/p 57 y/o patient > 30 pack year smoker, RA on MTX comes in with 20lb wt. loss, fatigue, right sided chest pain, hemoptysis CT chest --rt. suprahilar mass/copressionof RUL bronchus/? postobstructive pneumonia/paratracheal adenopathy/ ? rt. adrenal adenoma PET SCAN REPORT REVIEWED +UPTAKE PRECARINAL NODE/RIGHT SUPRAHILAR MASS/UPTAKE BILATERAL ADRENALS f/u CT adrenals--- most likely adenomas but + Pet uptake T2/N2 /? M1 for bronchoscopy will discuss with pulmonary/ct surgery
--- NOTE | 2018-05-27 22:55 | PN ---
Progress Note, Physician History of Present Illness: No new complaints - Current Medication List Current Medications: Active Medications Albuterol/Ipratropium (Duoneb -) 1 amp NEB Q6H PRN PRN Reason: SHORTNESS OF BREATH Folic Acid (Folic Acid -) 1 mg PO DAILY [facility] Last Admin: 05/27/18 09:29 Dose: Not Given Ceftriaxone Sodium 1 gm/ (Dextrose) 50 mls @ 100 mls/hr IVPB DAILY [facility]; Protocol Last Admin: 05/27/18 09:29 Dose: 100 mls/hr Methotrexate (Mexate -) 12.5 mg PO We@1000 [facility] - Objective Vital Signs: Vital Signs Temperature 98.5 F 05/27/18 18:00 Pulse Rate 69 05/27/18 18:00 Respiratory Rate 20 05/27/18 18:00 Blood Pressure 129/69 05/27/18 18:00 O2 Sat by Pulse Oximetry (%) 93 L 05/27/18 10:00 Neck: Yes: WNL, Supple Cardiovascular: Yes: WNL, Regular Rate and Rhythm Respiratory: Yes: Diminished Gastrointestinal: Yes: WNL, Normal Bowel Sounds, Soft Labs: CBC, BMP 05/27/18 06:00 05/27/18 06:00 INR, PTT INR 1.18 (0.83-1.09) H 05/25/18 06:30 Problem List - Problems (1) Lung mass Assessment/Plan: Pt scheduled for bronchoscopy in am No medical contraindication Pt to be npo for procedure Probable malignancy Code(s): R91.8 - OTHER NONSPECIFIC ABNORMAL FINDING OF LUNG FIELD (2) Pneumonia Assessment/Plan: ?Postobstructive pneumoia Cont IV ceftriaxone Cont nebulizers Code(s): J18.9 - PNEUMONIA, UNSPECIFIED ORGANISM
[2018-05-28] MEDS ORDERED: cefTRIAXone SODIUM 1 GM VIAL ONE (09:24)
[2018-05-28] MEDS ORDERED: DEXTROSE 5%-WATER - 50 ML IVPB ONE (09:24)
[2018-05-28] MEDS: CEFTRIAXONE 1 GM in DEXTROSE 5%-WATER - 50 ML IVPB SCH (09:29)
[2018-05-28] MEDS: FOLIC ACID 1 MG TABLET (FP) PO SCH (09:29)
--- NOTE | 2018-05-28 11:30 | PN ---
Progress Note (short form) - Note Progress Note: PULMONARY Still with hemoptysis. Denies shortness of breath or chest pain. Vital Signs Period Temp Pulse Resp BP Sys/Mo Pulse Ox Last 24 Hr 98.0 F-98.5 F 69-73 18-20 110-129/60-69 95-95 Gen: NAD at rest Heart: RRR Lung: decreased breath sounds at the bases Abd: soft, nontender Ext: no edema CBC, BMP 05/27/18 06:00 05/27/18 06:00 Active Medications Albuterol/Ipratropium (Duoneb -) 1 amp NEB Q6H PRN PRN Reason: SHORTNESS OF BREATH Folic Acid (Folic Acid -) 1 mg PO DAILY [facility] Last Admin: 05/28/18 09:29 Dose: Not Given Ceftriaxone Sodium 1 gm/ (Dextrose) 50 mls @ 100 mls/hr IVPB DAILY [facility]; Protocol Last Admin: 05/28/18 09:29 Dose: 100 mls/hr Methotrexate (Mexate -) 12.5 mg PO We@1000 [facility] A/P Hemoptysis Lung Mass likely Malignant Pneumonia ?Rheumatoid Arthritis Smoker - continue antibiotics - will proceed with bronchoscopy - monitor hemoptysis
--- NOTE | 2018-05-28 13:04 | PN ---
Progress Note, Physician History of Present Illness: patient stable doing well post biopsy comfortable - Current Medication List Current Medications: Active Medications Albuterol/Ipratropium (Duoneb -) 1 amp NEB Q6H PRN PRN Reason: SHORTNESS OF BREATH Folic Acid (Folic Acid -) 1 mg PO DAILY [facility] Last Admin: 05/28/18 09:29 Dose: Not Given Ceftriaxone Sodium 1 gm/ (Dextrose) 50 mls @ 100 mls/hr IVPB DAILY [facility]; Protocol Last Admin: 05/28/18 09:29 Dose: 100 mls/hr Methotrexate (Mexate -) 12.5 mg PO We@1000 [facility] - Objective Vital Signs: Vital Signs Temperature 98.1 F 05/28/18 09:56 Pulse Rate 73 05/28/18 09:56 Respiratory Rate 18 05/28/18 09:56 Blood Pressure 118/66 05/28/18 09:56 O2 Sat by Pulse Oximetry (%) 95 05/28/18 09:00 Constitutional: Yes: No Distress, Calm Cardiovascular: Yes: Regular Rate and Rhythm Respiratory: Yes: Regular, CTA Bilaterally Gastrointestinal: Yes: Normal Bowel Sounds, Soft Musculoskeletal: Yes: WNL Extremities: Yes: WNL Neurological: Yes: Alert, Oriented Psychiatric: Yes: Alert, Oriented Labs: CBC, BMP 05/27/18 06:00 05/27/18 06:00 INR, PTT INR 1.18 (0.83-1.09) H 05/25/18 06:30 Assessment/Plan Problem List - Problems (1) Abnormal radiologic finding of lung field Code(s): R91.8 - OTHER NONSPECIFIC ABNORMAL FINDING OF LUNG FIELD (2) Pneumonia Code(s): J18.9 - PNEUMONIA, UNSPECIFIED ORGANISM plan continue current mgmt will stop abx tomorrow monitor closely await for biopsy report rest as per the team
[2018-05-28] MEDS ORDERED: PROPOFOL 20 ML ONE ×3 (13:10→13:24)
--- NOTE | 2018-05-28 13:51 | PROC ---
Procedure Note Procedure: BRONCHOSCOPY NOTE After discussing the risks and benefits of the procedure, informed consent was obtained. Pt was placed under general anesthesia and intubated with size 8.0 ETT by anesthesia. [employer] video bronchoscope was passed via the ETT and the airways were examined down to the subsegmental level. The jany was slightly splayed. There were no endobronchial lesions noted in the left lung. At the level of the right upper lobe take off, there was an smooth, epithelialized mass obstructing the right upper lobe bronchus. Forcep biopsies were taken of the mass as well as brushings and washings. There was some post biopsy bleeding which was lavaged with iced saline with hemostasis achieved. The bronchoscope was then withdrawn and the procedure terminated. No immediate complications. Pre-op Dx: hemoptysis Post-op Dx: r/o lung cancer Plan: - f/u cultures, cytology and pathology Gregg Grady MD
[2018-05-28] MEDS ORDERED: ALBUTEROL SO4 2.5/IPRATROPIUM 0.5 INH SOL 3 ML VIAL.NEB. NEB PRN (14:35)
[2018-05-28] MEDS ORDERED: ONDANSETRON 4 MG/2 ML VIAL IVPUSH PRN (14:36)
--- NOTE | 2018-05-28 16:10 | PN ---
Progress Note (short form) - Note Progress Note: Patient had bronchoscopy with biopsy today (Dr. Grady), procedure note indicates RUL take-off, smooth, epithelialized mass obstructing the upper lobe bronchus. Will await cultures and pathology before establishing an operative plan. Dr. Vance made aware.
--- NOTE | 2018-05-28 19:17 | PN ---
Progress Note (short form) - Note Progress Note: Pattient seen and examined S/P bronchoscopy for RUL obstructing lesion Last Vital Signs Temp Pulse Resp BP Pulse Ox 98 F 68 16 106/56 L 95 05/28/18 15:30 05/28/18 15:30 05/28/18 15:30 05/28/18 15:30 05/28/18 15:00 Breasts: Without masses Cor: RSR, No murmurs, No gallops Lungs: diminsihed breath sounds Abd: Soft, Normal bowel sounds, No organomegaly Ext:No significant edema Skin: No rashes, Integument intact CBC, BMP 05/27/18 06:00 05/27/18 06:00 Impressio:" S/P bronchoscopy Await path.
[2018-05-28] MEDS ORDERED: ACETAMINOPHEN 325 MG TABLET (FP) PO PRN (19:44)
--- NOTE | 2018-05-28 22:24 | PN ---
Progress Note, Physician History of Present Illness: Pt tolerated procedure - Current Medication List Current Medications: Active Medications Acetaminophen (Tylenol -) 650 mg PO Q6H PRN PRN Reason: PAIN LEVEL 1 - 3 Albuterol/Ipratropium (Duoneb -) 1 amp NEB Q6H PRN PRN Reason: SHORTNESS OF BREATH Fentanyl (Sublimaze Injection -) 50 mcg IVPUSH [id number] PRN PRN Reason: PAIN-PACU ORDER X 4 DOSES ONLY Folic Acid (Folic Acid -) 1 mg PO DAILY [facility] Ceftriaxone Sodium 1 gm/ (Dextrose) 50 mls @ 100 mls/hr IVPB DAILY [facility]; Protocol Methotrexate (Mexate -) 12.5 mg PO We@1000 NESHA Ondansetron HCl (Zofran Injection) 4 mg IVPUSH Q6H PRN PRN Reason: NAUSEA AND/OR VOMITING - Objective Vital Signs: Vital Signs Temperature 97.9 F 05/28/18 18:30 Pulse Rate 77 05/28/18 18:30 Respiratory Rate 18 05/28/18 18:30 Blood Pressure 119/73 05/28/18 18:30 O2 Sat by Pulse Oximetry (%) 95 05/28/18 15:00 Neck: Yes: WNL, Supple Cardiovascular: Yes: WNL, Regular Rate and Rhythm Respiratory: Yes: WNL, Regular, CTA Bilaterally Gastrointestinal: Yes: WNL, Normal Bowel Sounds, Soft Labs: CBC, BMP 05/27/18 06:00 05/27/18 06:00 INR, PTT INR 1.18 (0.83-1.09) H 05/25/18 06:30 Problem List - Problems (1) Lung mass Assessment/Plan: S/P bronchoscopy Spoke to pt and his about outpt follow up for biopsy results and further management of lung mass Possible dc planning for am Code(s): R91.8 - OTHER NONSPECIFIC ABNORMAL FINDING OF LUNG FIELD (2) Pneumonia Assessment/Plan: ?Postobstructive pneumoia Cont IV ceftriaxone Cont nebulizers Code(s): J18.9 - PNEUMONIA, UNSPECIFIED ORGANISM
[2018-05-29] MEDS ORDERED: CEFTRIAXONE 1 GM in DEXTROSE 5%-WATER - 50 ML IVPB SCH (10:00)
[2018-05-29] MEDS ORDERED: FOLIC ACID 1 MG TABLET (FP) PO SCH (10:00)
[2018-05-29] MEDS ORDERED: METHOTREXATE 2.5 MG TABLET PO SCH ×2 (10:00)
[2018-05-29] MEDS ORDERED: cefTRIAXone SODIUM 1 GM VIAL ONE (10:23)
[2018-05-29] MEDS ORDERED: DEXTROSE 5%-WATER - 50 ML IVPB ONE (10:23)
[2018-05-29] MEDS ORDERED: PT OWN MED DRAWER 7, Y5N ONE (10:23)
--- NOTE | 2018-05-29 12:53 | PN ---
Progress Note, Physician History of Present Illness: PULMONARY POST BRONCH STABLE,-SOB,-HEMOPTYSIS - Current Medication List Current Medications: Active Medications Acetaminophen (Tylenol -) 650 mg PO Q6H PRN PRN Reason: PAIN LEVEL 1 - 3 Albuterol/Ipratropium (Duoneb -) 1 amp NEB Q6H PRN PRN Reason: SHORTNESS OF BREATH Fentanyl (Sublimaze Injection -) 50 mcg IVPUSH [id number] PRN PRN Reason: PAIN-PACU ORDER X 4 DOSES ONLY Folic Acid (Folic Acid -) 1 mg PO DAILY [facility] Last Admin: 05/29/18 10:25 Dose: 1 mg Ceftriaxone Sodium 1 gm/ (Dextrose) 50 mls @ 100 mls/hr IVPB DAILY [facility]; Protocol Last Admin: 05/29/18 10:26 Dose: 100 mls/hr Methotrexate (Mexate -) 12.5 mg PO We@1000 NESHA Last Admin: 05/29/18 10:26 Dose: 12.5 mg Ondansetron HCl (Zofran Injection) 4 mg IVPUSH Q6H PRN PRN Reason: NAUSEA AND/OR VOMITING - Objective Vital Signs: Vital Signs Temperature 98.1 F 05/29/18 09:56 Pulse Rate 75 05/29/18 09:56 Respiratory Rate 20 05/29/18 09:56 Blood Pressure 118/77 05/29/18 09:56 O2 Sat by Pulse Oximetry (%) 95 05/28/18 21:00 Constitutional: Yes: Well Nourished, Calm Eyes: Yes: WNL HENT: Yes: WNL Neck: Yes: WNL Cardiovascular: Yes: Regular Rate and Rhythm, S1, S2 Respiratory: Yes: CTA Bilaterally Gastrointestinal: Yes: Normal Bowel Sounds, Soft Extremities: Yes: WNL Edema: No Labs: Assessment/Plan A/P Hemoptysis resolvd Lung Mass likely Malignant Pneumonia ?Rheumatoid Arthritis Smoker - antibiotics as per ID - check path - monitor hemoptysis DR LOUIE
--- NOTE | 2018-05-29 13:05 | PN ---
Progress Note, Physician History of Present Illness: stable no complaints in room no issues - Current Medication List Current Medications: Active Medications Acetaminophen (Tylenol -) 650 mg PO Q6H PRN PRN Reason: PAIN LEVEL 1 - 3 Albuterol/Ipratropium (Duoneb -) 1 amp NEB Q6H PRN PRN Reason: SHORTNESS OF BREATH Fentanyl (Sublimaze Injection -) 50 mcg IVPUSH [id number] PRN PRN Reason: PAIN-PACU ORDER X 4 DOSES ONLY Folic Acid (Folic Acid -) 1 mg PO DAILY [facility] Last Admin: 05/29/18 10:25 Dose: 1 mg Ceftriaxone Sodium 1 gm/ (Dextrose) 50 mls @ 100 mls/hr IVPB DAILY [facility]; Protocol Last Admin: 05/29/18 10:26 Dose: 100 mls/hr Methotrexate (Mexate -) 12.5 mg PO We@1000 [facility] Last Admin: 05/29/18 10:26 Dose: 12.5 mg Ondansetron HCl (Zofran Injection) 4 mg IVPUSH Q6H PRN PRN Reason: NAUSEA AND/OR VOMITING - Objective Vital Signs: Vital Signs Temperature 98.1 F 05/29/18 09:56 Pulse Rate 75 05/29/18 09:56 Respiratory Rate 20 05/29/18 09:56 Blood Pressure 118/77 05/29/18 09:56 O2 Sat by Pulse Oximetry (%) 95 05/28/18 21:00 Constitutional: Yes: No Distress, Calm, Thin Cardiovascular: Yes: Regular Rate and Rhythm Respiratory: Yes: Regular, Poor Air Entry (bases) Gastrointestinal: Yes: Normal Bowel Sounds, Soft Musculoskeletal: Yes: WNL Extremities: Yes: WNL Neurological: Yes: Alert, Oriented Psychiatric: Yes: Alert, Oriented Labs: CBC, BMP 05/27/18 06:00 05/27/18 06:00 INR, PTT INR 1.18 (0.83-1.09) H 05/25/18 06:30 Assessment/Plan Problem List - Problems (1) Abnormal radiologic finding of lung field Code(s): R91.8 - OTHER NONSPECIFIC ABNORMAL FINDING OF LUNG FIELD (2) Pneumonia Code(s): J18.9 - PNEUMONIA, UNSPECIFIED ORGANISM plan will stop abx rest as per the team patient doing well incentive mile
[2018-05-29 14:08] VITALS: BP 118/67; PULSE 69; TEMP 98.5
--- NOTE | 2018-05-29 16:26 | PN ---
Physical Exam: SUBJECTIVE: Patient seen and examined OBJECTIVE: Vital Signs Period Temp Pulse Resp BP Sys/Mo Pulse Ox Last 24 Hr 97.9 F-98.5 F 69-77 18-20 105-119/67-77 95 GENERAL: The patient is awake, alert, and fully oriented, in no acute distress. HEAD: Normal with no signs of trauma. EYES: PERRL, extraocular movements intact, sclera anicteric, conjunctiva clear. No ptosis. ENT: Ears normal, nares patent, oropharynx clear without exudates, moist mucous membranes. NECK: Trachea midline, full range of motion, supple. LUNGS: Breath sounds equal, clear to auscultation bilaterally, no wheezes, no crackles, no accessory muscle use. HEART: Regular rate and rhythm, S1, S2 without murmur, rub or gallop. ABDOMEN: Soft, nontender, nondistended, normoactive bowel sounds, no guarding, no rebound, no hepatosplenomegaly, no masses. EXTREMITIES: 2+ pulses, warm, well-perfused, no edema. NEUROLOGICAL: Cranial nerves II through XII grossly intact. Normal speech, gait not observed. PSYCH: Normal mood, normal affect. SKIN: Warm, dry, normal turgor, no rashes or lesions noted Active Medications Generic Name Dose Route Start Last Admin Trade Name Freq PRN Reason Stop Dose Admin Acetaminophen 650 mg 05/28/18 19:44 Tylenol - PO Q6H PRN PAIN LEVEL 1 - 3 Albuterol/Ipratropium 1 amp 05/28/18 14:35 Duoneb - NEB Q6H PRN SHORTNESS OF BREATH Fentanyl 50 mcg 05/28/18 14:36 Sublimaze Injection - IVPUSH [id number] PRN PAIN-PACU ORDER X 4 DOSES ONLY Folic Acid 1 mg 05/29/18 10:00 05/29/18 10:25 Folic Acid - PO 1 mg DAILY NESHA Administration Methotrexate 12.5 mg 05/29/18 10:00 05/29/18 10:26 Mexate - PO 12.5 mg We@1000 NESHA Administration Ondansetron HCl 4 mg 05/28/18 14:36 Zofran Injection IVPUSH Q6H PRN NAUSEA AND/OR VOMITING ASSESSMENT/PLAN: 57 year olf chronic smoker presenting with hemoptysis and shortness of breath; found to have lung mass. Lung mass post obstructive pna -chest ct showing right hilar mass with enlarged pretracheal mediastinal nodes -staging; had PET as outpatient; get results; if <1month will only need brain MRI to complete stating (chest CT here extended to adrenals) -s/p bronchosopy pending results -pulm/thoracic surgery on board Visit type - Emergency Visit Emergency Visit: Yes ED Registration Date: 05/23/18 Care time: The patient presented to the Emergency Department on the above date and was hospitalized for further evaluation of their emergent condition. - New Patient This patient is new to me today: No - Critical Care Critical Care patient: No
--- NOTE | 2018-05-30 11:27 | PATH ---
Cytology Non-Gynecological Report Patient Name: CAROLINA PADILLA Med. Rec. #: [id number] /Age/Gender: 1960 (Age: 57) / M Account: [id number] Location: [address] [place] [address]/[facility] Taken: 05/28/2018 Received: 05/28/2018 Reported: 05/30/2018 Physicians: Deuce Lin M.D. Specimen(s) Received BRONCHIAL WASHINGS Clinical History Right upper lobe mass Final Diagnosis LUNG, RIGHT UPPER LOBE, BRONCHIAL WASHING: SATISFACTORY FOR EVALUATION. NO MALIGNANT CELLS IDENTIFIED. ACUTE INFLAMMATORY CELLS, REACTIVE BRONCHIAL CELLS, AND ALVEOLAR MACROPHAGES PPRESENT. Electronically Signed Lynette Stuart M.D. Gross Description Approximately 30cc of bloody fluid received fixed in 50% alcohol. One slide and one cellblock prepared.
--- NOTE | 2018-05-31 12:33 | PATH ---
Surgical Pathology Report Patient Name: CAROLINA PADILLA [facility]. Rec. #: [id number] /Age/Gender: 1960 (Age: 57) / M Account: [id number] Location: [address] [place] [address]/[facility] Taken: 05/28/2018 Received: 05/29/2018 Reported: 05/31/2018 Physicians: Deuce Lin M.D. Specimen(s) Received RIGHT UPPER LOBE BX Clinical History Right upper lobe mass, hemoptysis Final Diagnosis LUNG, RIGHT UPPER LOBE, BIOPSY: MARKEDLY ATYPICAL CELLULAR CLUSTERS, HIGHLY SUSPICIOUS FOR MALIGNANCY. SEE COMMENT. Comment: Minute aggregates (< 1 mm in greatest dimension) of highly atypical cells present within the submucosa, in a background of markedly inflamed benign bronchial mucosa with squamous metaplasia. Although highly suspicious for malignancy, a definitive diagnosis cannot be made in this material. Intradepartmental case reviewed with concordance on diagnosis. This case was discussed with Dr. Grady on May 31, 2018. Electronically Signed Lynette Stuart M.D. Gross Description Received in formalin, labeled "right upper lobe biopsy" are 5 medeiros, irregular portions of soft tissue ranging from 0.1-0.3 cm. in greatest dimension. The specimens are submitted in toto in one cassette. 05/29/201805/29/2018
--- NOTE | 2018-05-31 12:38 | PATH ---
Cytology Non-Gynecological Report Patient Name: CAROLINA PADILLA [facility]. Rec. #: [id number] /Age/Gender: 1960 (Age: 57) / M Account: [id number] Location: [address] [place] [address]/[facility] Taken: 05/28/2018 Received: 05/28/2018 Reported: 05/31/2018 Physicians: Deuce Lin M.D. Specimen(s) Received BRONCHIAL BRUSHINGS Clinical History Right upper lung mass Final Diagnosis BRONCHIAL BRUSHINGS: SATISFACTORY FOR EVALUATION. NEGATIVE FOR MALIGNANT CELLS. REACTIVE RESPIRATORY CELLS, METAPLASTIC SQUAMOUS CELLS, AND INFLAMMATORY CELLS PRESENT. Electronically Signed Lynette Stuart M.D. Gross Description Approximately 20cc of bloody fluid received fixed in 50% alcohol. One slide and one cellblock prepared.
--- NOTE | 2018-06-06 15:15 | PN ---
Progress Note (short form) - Note Progress Note: Made appointment for patient -- [facility] 06/19 at 10am Records given Patient and his notified that he need futher w/u to r/o malignancy and that CT findings and bronch findings are highly suspicious
== END 2018-05-29 18:43 | disposition home or self-care (01) | DRG 144 ==
LOC: SUPCPDRO 15:26 → JER 15:26 → JERBED 17:49 → J5S 20:16
PROVIDERS: ADMIT Internal Medicine; ATTEND Internal Medicine
PROC: 0B948ZX Drainage of Right Upper Lobe Bronchus, Via Natural or Artificial Opening Endoscopic, Diagnostic (ICD-10-PCS; 2018-05-28)
PROC: 0BB48ZX Excision of Right Upper Lobe Bronchus, Via Natural or Artificial Opening Endoscopic, Diagnostic (ICD-10-PCS; 2018-05-28)
PROC: 0BBC8ZX Excision of Right Upper Lung Lobe, Via Natural or Artificial Opening Endoscopic, Diagnostic (ICD-10-PCS; 2018-05-28)
PROC: 0BD48ZX Extraction of Right Upper Lobe Bronchus, Via Natural or Artificial Opening Endoscopic, Diagnostic (ICD-10-PCS; principal; 2018-05-28 12:30)
DX: R91.8 Other nonspecific abnormal finding of lung field (principal); J18.8 Other pneumonia, unspecified organism; R04.2 Hemoptysis; R07.89 Other chest pain; M06.9 Rheumatoid arthritis, unspecified; R63.4 Abnormal weight loss; Z68.25 Body mass index [BMI] 25.0-25.9, adult; Z87.891 Personal history of nicotine dependence
CPT/HCPCS: 36415; 71250-TC; 73560-TC-LT-FY; 73560-TC-RT-FY; 74178-TC; 80053; 83735; 84100; 85025; 85610; 85651; 85730; 86140; 86850; 86900; 86901; 87070; 87102; 87116; 87205; 87206; 87210; 88104; 88108; 88305-TC; 93005; 93010; 94760; 99284-25; J1644; J8610